=== PATIENT | male | born 1970 | race Caucasian/White ===

== ENCOUNTER 2016-11-05 12:02 | Emergency (ER) | payer OTHER ==
[~2016-11-05] VITALS: Ht 175.3 cm; Wt 96.5 kg
[~2016-11-05 12:02] MED LIST: ASPIR-LOW81 MG PO; BP MED; BUSPAR10 MG PO; BUSPIRONE HCL10 MG PO; CITALOPRAM HBR10 MG PO; CITALOPRAM HBR20 MG PO; CLONIDINE HCL0.3 MG PO; CLONIDINE1 EACH TD; FOLIC ACID1 MG PO; LAMICTAL200 MG PO; LIBRIUM25 MG PO; THERAGRAN1 TABLET PO; THIAMINE HCL100 MG PO; VITAMIN B-1100 MG PO
[2016-11-05 13:58] LABS: HEMATOCRIT 46.4 % (38.0-50.0); MCH 30.7 PG (29.0-34.0); MCHC 33.8 G/DL (30.0-36.0); MCV 90.6 FL (86-99); MEAN PLAT.VOLUME 9.1 uM^3 (9.0-12.4); PLATELET COUNT 239 K/uL (156-360); RBC DIS.WIDTH-CV 12.5 % (11.8-14.6); RBC DIS.WIDTH-SD 40.7 % (39-53); RED BLOOD COUNT 5.12 M/uL (4.00-5.50); WHITE BLOOD COUNT 6.2 K/uL (4.1-10.2)
[2016-11-05 14:12] LABS: CHLORIDE 105 mEq/L (99-109); POTASSIUM 4.1 mEq/L (3.7-5.4); SODIUM 143 mEq/L (136-147)
[2016-11-05 14:14] LABS: GLUCOSE 106 mg/dL (70-99)
[2016-11-05 14:15] LABS: ANION GAP 14 MEQ/L (2-14)
[2016-11-05 14:16] LABS: TOTAL BILIRUBIN 0.3 mg/dL (0.0-1.0)
[2016-11-05 14:17] LABS: SERUM ETHYL ALCOHOL 265 mg/dL
[2016-11-05 14:18] LABS: ALKALINE PHOSPHATASE 90 IU/L (3-129); GFR ESTIMATE (CALCULATED) > 59 mL/min/
[2016-11-05 14:20] LABS: UREA NITROGEN (BUN) 15 mg/dL (9-23)
[2016-11-05 14:21] LABS: SALICYLATE < 5.0 MG/DL (15-30)
[2016-11-05] MEDS ORDERED: LIBRIUM25 MG PO (14:46)
[2016-11-05] MEDS ORDERED: THIAMINE HCL100 MG PO (14:46)
[2016-11-05 15:34] VITALS: BP 123/92
== END 2016-11-05 15:35 | disposition home or self-care (01) ==
LOC: EME 12:02 → EXP 12:02 → EME 12:02 → EXP 15:35
PROVIDERS: Physician Assistant
DX: F10.129 Alcohol abuse with intoxication, unspecified (principal); I10 Essential (primary) hypertension; K21.9 Gastro-esophageal reflux disease without esophagitis; Z86.73 Personal history of transient ischemic attack (TIA), and cerebral infarction without residual deficits
CPT/HCPCS: 80053; 81003; 85027; 99281; 99284; G0480; J7030

== ENCOUNTER 2017-02-09 10:04 | Emergency (ER) | payer OTHER ==
[~2017-02-09] VITALS: Ht 175.3 cm; Wt 98.2 kg
[2017-02-09 11:02] LABS: HEMATOCRIT 47.2 % (38.0-50.0); MCHC 34.3 G/DL (30.0-36.0); MCV 90.4 FL (86-99); PLATELET COUNT 256 K/uL (156-360); RBC DIS.WIDTH-CV 12.6 % (11.8-14.6); RBC DIS.WIDTH-SD 41.8 % (39-53); RED BLOOD COUNT 5.22 M/uL (4.00-5.50); WHITE BLOOD COUNT 7.3 K/uL (4.1-10.2)
[2017-02-09 11:11] LABS: CHLORIDE 102 mEq/L (99-109); POTASSIUM 3.4 mEq/L (3.7-5.4); SODIUM 140 mEq/L (136-147)
[2017-02-09 11:13] LABS: GLUCOSE 93 mg/dL (70-99)
[2017-02-09 11:14] LABS: ANION GAP 14 MEQ/L (2-14)
[2017-02-09 11:15] LABS: TOTAL BILIRUBIN 0.5 mg/dL (0.0-1.0)
[2017-02-09 11:16] LABS: SERUM ETHYL ALCOHOL 196 mg/dL
[2017-02-09 11:17] LABS: ALKALINE PHOSPHATASE 97 IU/L (3-129); GFR ESTIMATE (CALCULATED) > 59 mL/min/
[2017-02-09 11:18] LABS: UREA NITROGEN (BUN) 11 mg/dL (9-23)
[2017-02-09] MEDS ORDERED: LIBRIUM25 MG PO (13:16)
[2017-02-09 13:36] VITALS: BP 130/91
== END 2017-02-09 13:37 | disposition home or self-care (01) ==
LOC: EME 10:04
PROVIDERS: Emergency Medicine
DX: F10.239 Alcohol dependence with withdrawal, unspecified (principal); Y90.6 Blood alcohol level of 120-199 mg/100 ml; I10 Essential (primary) hypertension; K21.9 Gastro-esophageal reflux disease without esophagitis; F41.9 Anxiety disorder, unspecified; F17.220 Nicotine dependence, chewing tobacco, uncomplicated
CPT/HCPCS: 80053; 85027; 99281; 99285; G0480; J3411; J3475; J7030